=== PATIENT | male | born 1955 | race Caucasian/White ===

== ENCOUNTER 2016-09-10 03:06 | Emergency (ER) | payer OTHER ==
[~2016-09-10] VITALS: Ht 172.7 cm; Wt 109.0 kg
[~2016-09-10 03:06] MED LIST: ALPR1TAB2 PO; BENA20TA48 PO; GABA100C14 PO; IBUP800T25 PO; LEVO175T2 PO; PYRI50TA80 PO; VERA120T77 PO; ZOC20 PO
[2016-09-10 03:56] VITALS: Ht 172.7 cm; Wt 109.0 kg
--- NOTE | 2016-09-10 04:43 | ERD ---
ER Documentation Chief Complaint Date/Time DATE: 09/10/16 TIME: 04:40 Chief Complaint left ear pain x 2 weeks, seen by stitching machine feeder or offbearer recommended-hearing aid HPI 61-year-old male presents here in emergency department for complaints of tinnitus on the left ear, patient is also complaining of left ear pain, sharp pain, 4/10 scale, he started to have the ear pain after cleaning the left ear. Patient denies any ear discharge. Patient was recommended to go to the emergency department to have CT scan of the brain and to ensure that there is no tumor cough and some tinnitus in her left ear. Patient denies any head injury. Patient denies any other symptoms. Patient did not take her medications of symptoms she denies any ear discharge. ROS All systems reviewed and are negative except as per history of present illness. Medications Home Meds Reported Medications Alprazolam* (Xanax*) 1 Mg Tab, 1 MG PO Q8H Y for ANXIETY, TAB 09/10/15 Ibuprofen* (Ibuprofen*) 800 Mg Tablet, 800 MG PO Q6H for PAIN, TAB 09/10/15 Simvastatin (Simvastatin) 20 Mg Tablet, 20 MG PO DAILY, #30 TAB 09/10/15 Verapamil Hcl* (Verapamil ER*) 120 Mg Tablet.er, 120 MG PO DAILY, TAB.SA 09/10/15 Pyridoxine Hcl (Vitamin B6) 50 Mg Tab, 50 MG PO, TAB 09/10/15 Levothyroxine Sodium* (Synthroid*) 175 Mcg Tablet, 175 MCG PO BEFORE BREAKFAST, #30 TAB 09/10/15 Benazepril Hcl* (Benazepril Hcl*) 20 Mg Tablet, 20 MG PO DAILY, #30 TAB 09/10/15 Gabapentin* (Gabapentin*) 100 Mg Capsule, 100 MG PO TID, #90 CAP 09/10/15 Allergies Allergies: Coded Allergies: acetaminophen (Verified Allergy, Unknown, 09/10/15) fish derived (Verified Allergy, Unknown, 09/10/15) hydrocodone (Verified Allergy, Unknown, 09/10/15) PMhx/Soc History of Surgery: Yes (R KNEEE OPEN, THYROIDECTOMY, RHINOPLASTY) Anesthesia Reaction: Yes (TAKES [place]OUNT ANESTHESIA) Hx Neurological Disorder: Yes (NEUROPATHY LEGS) Hx Respiratory Disorders: Yes (COPD) Hx Cardiac Disorders: Yes (HTN, HIGH CHOL) Hx Psychiatric Problems: Yes (ANXIETY, DEPRESSION) Hx Miscellaneous Medical Probl: No Hx Alcohol Use: Yes (RARE FEW BEERS A YEAR) Hx Substance Use: No Hx Tobacco Use: Yes (1/2- 1 PK/DAY) Smoking Status: Current every day smoker FmHx Family History: No coronary disease, No diabetes, No other Physical Exam Vitals Vital Signs Date Time Temp Pulse Resp B/P Pulse Ox O2 Delivery O2 Flow Rate FiO2 09/10/16 03:56 97.3 86 20 149/88 98 Physical Exam GENERAL: The patient is well developed and appropriate for usual state of health, in no apparent distress. HEENT: Atraumatic. Ears: Normal tympanic membrane, no erythema or bulging. Noted some left ear canal erythematous with mild swelling noted. No ear discharge in both ears.. Nose: normal nasal turbinates, no erythema or swelling. Normal nasal discharge. Throat: oropharynx clear. No tonsillar swelling or tonsillar exudates. No lymphadenopathy. CHEST: Clear to auscultation bilaterally. There are no rales, wheezes or rhonchi. HEART: Regular rate and rhythm. No murmurs, clicks, rubs or gallops. No S3 or S4. ABDOMEN: Soft, nontender and nondistended. Good bowel sounds. No rebound or guarding. No gross peritonitis. No gross organomegaly or masses. No Bright sign or McBurney point tenderness. BACK: No midline or flank tenderness. EXTREMITIES: Equal pulses bilaterally. There is no peripheral clubbing, cyanosis or edema. No focal swelling or erythema. Full range of motion. Grossly neurovascularly intact. NEURO: Alert and oriented. Cranial nerves 2-12 intact. Motor strength in all 4 extremities with 5/5 strength. Sensation grossly intact. Normal speech and gait. SKIN: There is no apparent rash or petechia. The skin is warm and dry. HEMATOLOGIC AND LYMPHATIC: There is no evidence of excessive bruising or lymphedema. No gross cervical, axillary, or inguinal lymphadenopathy. Results 24 hrs PROCEDURE: CT BRAIN WITHOUT CONTRAST CLINICAL INDICATION: 61-year-old male with headaches. TECHNIQUE: The study was performed utilizing [employer] 64-slice CT scanner. Direct axial sections were obtained from the foramen magnum to the vertex without the use of intravenous contrast material. Sagittal and coronal reformations were obtained. Automated exposure control and iterative reconstruction techniques were utilized for this examination. The images were viewed on a PACS workstation. CTD/vol = 44.7 mGy; Total Exam DLP = 810.3 mGy- cm. COMPARISON: None. FINDINGS: There is mild prominence of the sulci and cisternal spaces consistent with diffuse volume loss. Otherwise, the ventricles have a normal shape and position. There is no evidence for mass effect or midline shift. There are calcifications identified within the intracranial carotid and vertebral arteries. There is no evidence for acute intra or extra-axial blood. The bony calvarium is intact. Mild mucosal thickening is seen within the left ethmoid air cells. No air-fluid levels are noted. The mastoid air cells are without significant soft tissue. IMPRESSION: 1. Mild diffuse volume loss. 2. Vascular calcifications. 3. Mild mucosal thickening left ethmoid air cells. .Chava Ferrari MD, MD Date Time Electronically viewed and signed by .Chava Ferrari MD, MD on 09/10/2016 05:11 Procedures/[facility] Medical decision making: Patient symptoms is active consistent with tinnitus, further evaluation by ENT specialist as necessary for further evaluation. CT scan of the brain does not show any tumors or any other neurologic emergencies. Patient has an inflamed ear canal, most likely consistent with otitis externa. No foreign body noted in the ear. Patient was given for Corticosporin otic drops , is advised to see primary care doctor in next 3-4 days, evaluation by ENT specialist is appropriate. Patient was advised to return to emergency department for worsening symptoms Departure Diagnosis: Primary Impression: Tinnitus Laterality: left Qualified Code: H93.12 - Tinnitus, left Additional Impression: Otitis externa Otitis externa type: unspecified type Laterality: left Chronicity: unspecified Qualified Code: H60.92 - Otitis externa of left ear, unspecified chronicity, unspecified type Condition: Stable Patient Instructions: Otitis Media, Abx Tx (Adult), Tinnitus (Ringing in the Ears) KIRK HASTINGS NP Sep 10, 2016 04:43
--- NOTE | 2016-09-10 05:12 | RADRPT ---
PROCEDURE: CT BRAIN WITHOUT CONTRAST CLINICAL INDICATION: 61-year-old male with headaches. TECHNIQUE: The study was performed utilizing [id number] 64-slice CT scanner. Direct axial sections were obtained from the foramen magnum to the vertex without the use of intravenous contrast material. Sagittal and coronal reformations were obtained. Automated exposure control and iterativ e reconstruction techniques were utilized for this examination. The images were viewed on a PACS [employer]. CTD/vol = 44.7 mGy; Total Exam DLP = 810.3 mGy-cm. COMPARISON: None. FINDINGS: There is mild prominence of the sulci and cisternal spaces consistent with diffuse volume loss. Oth erwise, the ventricles have a normal shape and position. There is no evidence for mass effect or mid line shift. There are calcifications identified within the intracranial carotid and vertebral arter ies. There is no evidence for acute intra or extra-axial blood. The bony calvarium is intact. Mild m ucosal thickening is seen within the left ethmoid air cells. No air-fluid levels are noted. The ma stoid air cells are without significant soft tissue. IMPRESSION: 1. Mild diffuse volume loss. 2. Vascular calcifications. 3. Mild mucosal thickening left ethmoid air cells. .Chava Ferrari MD, Date Time Electronically viewed and signed by .Chava Ferrari MD, MD on 09/10/2016 05:11 .M/
[2016-09-10] MEDS ORDERED: NPH10OT LEFT EAR (05:25)
== END 2016-09-10 05:30 | disposition home or self-care (01) ==
LOC: FTE 03:06
DX: H93.12 Tinnitus, left ear (principal); H60.92 Unspecified otitis externa, left ear; J44.9 Chronic obstructive pulmonary disease, unspecified; I10 Essential (primary) hypertension; F17.210 Nicotine dependence, cigarettes, uncomplicated; E11.9 Type 2 diabetes mellitus without complications; R51 Headache
CPT/HCPCS: 70450; Z7502